=== PATIENT | female | born 1995 | race Caucasian/White ===

== ENCOUNTER 2023-06-10 20:17 | Emergency (ER) | payer BC ==
[~2023-06-10] VITALS: Ht 167.6 cm; Wt 65.0 kg
[2023-06-10 20:19] VITALS: BP 147/101; PULSE 72; RESP 16; TEMP 98.1; O2SAT 99
[2023-06-10] MEDS ORDERED: sulfamethoxazole/trimethoprim DS (800/160mg) tablet PO ONE (21:35)
[2023-06-10] MEDS ORDERED: cephalexin 500mg capsule PO ONE (21:35)
[2023-06-10] MEDS ORDERED: CEPH250T PO (21:38)
[2023-06-10] MEDS ORDERED: SULF1TAB45 PO (21:38)
[2023-06-11] MEDS ORDERED: CEPH250T PO (23:02)
[2023-06-11] MEDS ORDERED: DOXY-356 PO (23:02)
== END 2023-06-10 21:46 | disposition home or self-care (01) ==
LOC: ER 20:18
DX: L02.612 Cutaneous abscess of left foot (principal)
CPT/HCPCS: 10060; 99283; A6266; A6449

== ENCOUNTER 2023-06-11 20:07 | Emergency (ER) | payer BC ==
[~2023-06-11] VITALS: Ht 167.6 cm; Wt 70.5 kg
[~2023-06-11 20:07] MED LIST: CEPH250T PO; SULF1TAB45 PO; ampicillin/sulbac 3gm/NS 100ml 100 ML IV ONE
[2023-06-11 20:10] VITALS: BP 153/93; PULSE 72; RESP 20; TEMP 98; O2SAT 100
[2023-06-11] MEDS ORDERED: LORazepam 1 MG tablet PO ONE (20:30)
[2023-06-11] MEDS ORDERED: LIDOcaine 1% W/epiNEPHrine 1:100,000 20ml vial IJ ONE (20:50)
[2023-06-11] MEDS ORDERED: levoFLOXACIN 500mg tablet PO ONE (21:05)
[2023-06-11] MEDS ORDERED: DOXYCYCLINE 100MG CAPSULE PO STA (22:51)
[2023-06-11] MEDS ORDERED: CEPH250T PO (23:02)
[2023-06-11] MEDS ORDERED: DOXY-356 PO (23:02)
== END 2023-06-11 23:14 | disposition home or self-care (01) ==
LOC: ER 20:08
DX: L02.416 Cutaneous abscess of left lower limb (principal)
CPT/HCPCS: 87070; 87077; 87186; 96365; 99284; J0295